=== PATIENT | female | born 1960 | race Caucasian/White ===

== ENCOUNTER 2019-09-19 11:16 | Emergency (ER) | payer OTHER ==
[2019-09-19 11:38] VITALS: BMI 26.4
[2019-09-19] MEDS ORDERED: predniSONE 20 MG TABLET (UD) PO ONE (12:55)
[2019-09-19] MEDS ORDERED: KETOROLAC TROMETHAMINE 60 MG/2 ML VIAL IM ONE (12:55)
[2019-09-19] MEDS ORDERED: diazePAM 5 MG TABLET PO ONE (12:55)
[2019-09-19] MEDS ORDERED: LIDOCAINE 5% TOPICAL PATCH TP ONE (12:56)
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
[2019-09-19] MEDS ORDERED: predniSONE 20 MG TABLET (UD) ONE (13:04)
[2019-09-19] MEDS ORDERED: LIDOCAINE 5% TOPICAL PATCH ONE (13:05)
[2019-09-19] MEDS ORDERED: diazePAM 5 MG TABLET ONE (13:05)
[2019-09-19] MEDS ORDERED: KETOROLAC TROMETHAMINE 60 MG/2 ML VIAL ONE (13:05)
[2019-09-19 15:20] VITALS: BP 132/68; PULSE 51; TEMP 97.4
== END 2019-09-19 15:20 | disposition home or self-care (01) ==
LOC: JERFT 11:16 → JER 11:16
PROC: 3E0233Z Introduction of Anti-inflammatory into Muscle, Percutaneous Approach (ICD-10-PCS; principal; 2019-09-19)
DX: M54.42 Lumbago with sciatica, left side (principal); G89.29 Other chronic pain
CPT/HCPCS: 99282-25